=== PATIENT | female | born 1985 | race Caucasian/White ===

== ENCOUNTER 2020-03-09 11:16 | Inpatient (IN) | payer OTHER ==
[~2020-03-09 11:16] MED LIST: chlordiazePOXIDE HCL 25 MG CAPSULE PO SCH
[2020-03-09 12:00] VITALS: BMI 30.4
[2020-03-09] MEDS ORDERED: BISMUTH SUBSALICYLATE 262 MG/15 ML BTL PO PRN (12:00)
[2020-03-09] MEDS ORDERED: MENTHOL/PHENOL 1 EACH UD MM PRN (12:00)
[2020-03-09] MEDS ORDERED: METHOCARBAMOL 500 MG TABLET PO PRN (12:00)
[2020-03-09] MEDS ORDERED: ACETAMINOPHEN 325 MG TABLET (FP) PO PRN ×2 (12:00)
[2020-03-09] MEDS ORDERED: chlordiazePOXIDE HCL 25 MG CAPSULE PO PRN (12:00)
[2020-03-09] MEDS ORDERED: ONDANSETRON *ODT* 4 MG TABLET SL PRN (12:00)
[2020-03-09] MEDS ORDERED: MAGNESIUM CITRATE 300 ML BOTTLE PO PRN (12:00)
[2020-03-09] MEDS ORDERED: MAGNESIUM HYDROX 2400MG/30ML ORAL SUSPENSION 30 ML CUP PO PRN (12:00)
[2020-03-09] MEDS ORDERED: MAG HYDROX/AL HYDROX/SIMETH 30 ML UNIT-DOSE CUP PO PRN (12:00)
[2020-03-09] MEDS ORDERED: IBUPROFEN 400 MG TABLET (FP) PO PRN (12:00)
[2020-03-09] MEDS: PRENATAL VITAMINS W/ FOLIC ACID TABLET (FP) PO SCH (12:43)
[2020-03-09] MEDS: LORazepam 2 MG TABLET PO SCH ×3 (12:43→22:33)
[2020-03-09] MEDS: hydrOXYzine PAMOATE 25 MG CAPSULE (FP) PO SCH ×3 (13:48→22:33)
[2020-03-09] MEDS ORDERED: MELATONIN 5 MG TABLETS PO SCH (22:00)
[2020-03-09] MEDS: THIAMINE HCL 100 MG TABLET (FP) PO SCH (22:33)
[2020-03-09] MEDS: MELATONIN 5 MG TABLETS PO PRN (22:36)
[2020-03-10] MEDS: LORazepam 2 MG TABLET PO SCH ×3 (05:48→17:16)
[2020-03-10] MEDS: hydrOXYzine PAMOATE 25 MG CAPSULE (FP) PO SCH ×5 (05:48→23:37)
[2020-03-10] MEDS ORDERED: ESCITALOPRAM OXALATE 20 MG TABLET PO SCH (10:00)
[2020-03-10] MEDS: PRENATAL VITAMINS W/ FOLIC ACID TABLET (FP) PO SCH (10:02)
[2020-03-10] MEDS: ESCITALOPRAM OXALATE PO SCH (10:03)
[2020-03-10] MEDS: FUROSEMIDE 40 MG TABLET (FP) PO SCH (10:03)
[2020-03-10] MEDS: LORazepam 1 MG TABLET PO PRN (13:13)
[2020-03-10 17:18] LABS: POTASSIUM 3.5 mmol/L (3.5-5.1)
[2020-03-10 17:20] LABS: CALCIUM 8.7 mg/dL (8.5-10.1)
[2020-03-10 17:21] LABS: ALBUMIN 3.8 g/dl (3.4-5.0); BLOOD UREA NITROGEN 9.5 mg/dL (7-18); HEMOGLOBIN 13.2 GM/dL (10.7-15.3); MEAN PLT VOLUME 8.6 fl (7.5-11.1)
[2020-03-10 17:24] LABS: CREATININE 0.7 mg/dL (0.55-1.3)
[2020-03-10 17:26] LABS: BILIRUBIN,TOTAL 2.1 mg/dL (0.2-1); HEMATOCRIT 38.5 % (32.4-45.2); MCH 32.7 pg (25.7-33.7); MCHC 34.3 g/dl (32.0-36.0); MEAN CELL VOLUME 95.3 fl (80-96); PLATELET COUNT 70 K/MM3 (134-434); RBC 4.03 M/mm3 (3.60-5.2); RDW 14.3 % (11.6-15.6); TOT PROT 7.2 g/dl (6.4-8.2)
[2020-03-10 17:36] LABS: WHITE BLOOD COUNT 1.8 K/mm3 (4.0-10.0)
[2020-03-10] MEDS: THIAMINE HCL 100 MG TABLET (FP) PO SCH (23:37)
[2020-03-11] MEDS: LORazepam 2 MG TABLET PO SCH (00:04)
[2020-03-11] MEDS: LORazepam 1 MG TABLET PO PRN ×2 (03:19→13:06)
[2020-03-11] MEDS ORDERED: chlordiazePOXIDE HCL 25 MG CAPSULE PO SCH (05:00)
[2020-03-11] MEDS: hydrOXYzine PAMOATE 25 MG CAPSULE (FP) PO SCH ×5 (05:02→22:01)
[2020-03-11] MEDS: LORazepam 1 MG TABLET PO SCH ×4 (05:03→22:01)
[2020-03-11] MEDS: PRENATAL VITAMINS W/ FOLIC ACID TABLET (FP) PO SCH (10:17)
[2020-03-11] MEDS: FUROSEMIDE 40 MG TABLET (FP) PO SCH (10:17)
[2020-03-11] MEDS: ESCITALOPRAM OXALATE PO SCH (10:18)
[2020-03-11] MEDS ORDERED: PNEUMOC 13-VAL CONJ-DIP CRM/PF 0.5 ML DISP.SYRIN IM ONE (12:00)
[2020-03-11] MEDS ORDERED: PNEUMOCOCCAL 23 VACCINE 0.5 ML VIAL IM ONE (12:00)
[2020-03-11] MEDS: THIAMINE HCL 100 MG TABLET (FP) PO SCH (22:01)
[2020-03-12] MEDS ORDERED: chlordiazePOXIDE HCL 10 MG CAPSULE PO PRN
[2020-03-12] MEDS ORDERED: LORazepam 0.5 MG TABLET PO PRN
[2020-03-12] MEDS: LORazepam 0.5 MG TABLET PO SCH ×4 (04:44→22:35)
[2020-03-12] MEDS ORDERED: chlordiazePOXIDE HCL 10 MG CAPSULE PO SCH (05:00)
[2020-03-12] MEDS: hydrOXYzine PAMOATE 25 MG CAPSULE (FP) PO SCH ×2 (05:09→10:02)
[2020-03-12] MEDS: FUROSEMIDE 40 MG TABLET (FP) PO SCH (10:02)
[2020-03-12] MEDS: PRENATAL VITAMINS W/ FOLIC ACID TABLET (FP) PO SCH (10:03)
[2020-03-12] MEDS: ESCITALOPRAM OXALATE PO SCH (10:03)
[2020-03-12] MEDS ORDERED: hydrOXYzine PAMOATE 25 MG CAPSULE (FP) PO PRN (11:57)
[2020-03-12] MEDS: MELATONIN 5 MG TABLETS PO PRN (22:35)
[2020-03-12] MEDS: THIAMINE HCL 100 MG TABLET (FP) PO SCH (22:36)
[2020-03-13] MEDS ORDERED: chlordiazePOXIDE HCL 10 MG CAPSULE PO SCH (05:00)
[2020-03-13] MEDS ORDERED: LORazepam 0.5 MG TABLET PO ONE (05:00)
[2020-03-13 06:10] VITALS: BP 138/86; PULSE 71; TEMP 97.1
[2020-03-13 10:52] LABS: POTASSIUM 3.5 mmol/L (3.5-5.1)
[2020-03-13 10:57] LABS: ALBUMIN 3.9 g/dl (3.4-5.0)
[2020-03-13 10:58] LABS: BLOOD UREA NITROGEN 12.1 mg/dL (7-18)
[2020-03-13 11:01] LABS: CREATININE 0.8 mg/dL (0.55-1.3)
[2020-03-13 11:02] LABS: BILIRUBIN,TOTAL 1.6 mg/dL (0.2-1); TOT PROT 7.4 g/dl (6.4-8.2)
[2020-03-14] MEDS ORDERED: chlordiazePOXIDE HCL 10 MG CAPSULE PO ONE (05:00)
== END 2020-03-13 09:17 | disposition home or self-care (01) | DRG 775 ==
LOC: YASAS 11:16 → Y3N 11:59
PROVIDERS: ADMIT Allergy & Immunology; ATTEND Allergy & Immunology
PROC: HZ2ZZZZ Detoxification Services for Substance Abuse Treatment (ICD-10-PCS; principal; 2020-03-09)
DX: F10.230 Alcohol dependence with withdrawal, uncomplicated (principal); F10.220 Alcohol dependence with intoxication, uncomplicated; F10.282 Alcohol dependence with alcohol-induced sleep disorder; F32.9 Major depressive disorder, single episode, unspecified; D72.819 Decreased white blood cell count, unspecified; K70.30 Alcoholic cirrhosis of liver without ascites; R56.9 Unspecified convulsions; R74.8 Abnormal levels of other serum enzymes; E66.9 Obesity, unspecified; Z68.30 Body mass index [BMI] 30.0-30.9, adult
CPT/HCPCS: 36415; 80053; 81025; 85027; 86780; 93005; 93010; C9803; U0003

== ENCOUNTER 2020-03-10 20:39 | Emergency (ER) | payer OTHER ==
[2020-03-10 21:25] VITALS: TEMP 98.1; BMI 27.9
[2020-03-10] MEDS ORDERED: FAMOTIDINE 10 MG TABLET PO ONE (22:23)
[2020-03-10] MEDS ORDERED: chlordiazePOXIDE HCL 25 MG CAPSULE PO ONE (22:23)
[2020-03-10] MEDS ORDERED: MAG HYDROX/AL HYDROX/SIMETH 30 ML UNIT-DOSE CUP PO ONE (22:24)
[2020-03-10] MEDS ORDERED: MAG HYDROX/AL HYDROX/SIMETH 30 ML UNIT-DOSE CUP ONE (23:02)
[2020-03-10] MEDS ORDERED: chlordiazePOXIDE HCL 25 MG CAPSULE ONE (23:02)
[2020-03-10] MEDS ORDERED: FAMOTIDINE 20 MG TABLET ONE (23:02)
[2020-03-10 23:23] LABS: BASO % 0.8 % (0-2.0); EOS % 4.1 % (0-4.5); HEMATOCRIT 42.8 % (32.4-45.2); HEMOGLOBIN 14.6 GM/dL (10.7-15.3); MCH 32.4 pg (25.7-33.7); MCHC 34.2 g/dl (32.0-36.0); MEAN CELL VOLUME 94.9 fl (80-96); MEAN PLT VOLUME 8.1 fl (7.5-11.1); NEUT % 45.1 % (42.8-82.8); PLATELET COUNT 72 K/MM3 (134-434); RDW 14.4 % (11.6-15.6); WHITE BLOOD COUNT 2.5 K/mm3 (4.0-10.0)
[2020-03-11 01:58] VITALS: BP 155/100; PULSE 100
== END 2020-03-11 01:58 | disposition home or self-care (01) ==
LOC: JER 20:39
DX: F10.239 Alcohol dependence with withdrawal, unspecified (principal); K70.30 Alcoholic cirrhosis of liver without ascites; D72.819 Decreased white blood cell count, unspecified
CPT/HCPCS: 36415; 85025; 99284-25